=== PATIENT | male | born 1975 | race Caucasian/White ===

== ENCOUNTER 2016-10-19 13:44 | Emergency (ER) | payer OTHER ==
[2016-10-19] MEDS ORDERED: MORPHINE 4 MG/ML 1ML SYRINGE As Ordered ONE (14:37)
[2016-10-19] MEDS ORDERED: CEPHALEXIN 250 MG CAP As Ordered ONE (14:37)
[2016-10-19] MEDS ORDERED: ADACEL/BOOSTRIX VACCINE (DIPHTH/PERTUSS/ACELL/TETANUS)0.5ML SYR (90715) As Ordered ONE (14:38)
[2016-10-19] MEDS ORDERED: MORPHINE 15 MG SA TAB As Ordered ONE (14:48)
[2016-10-19] MEDS ORDERED: LIDOCAINE W/EPINEPHRINE 1% 20ML VIAL As Ordered ONE (16:11)
[2016-10-19] MEDS ORDERED: LIDOCAINE 2% W/EPIN INJ 20ML **PRES FREE As Ordered ONE (16:12)
--- NOTE | 2016-10-19 18:12 | EDDOCDS ---
Physician Documentation [facility] Name: Ming Adams Age: 41 yrs Sex: Male : 1975 Arrival Date: 10/19/2016 Time: 13:44 Bed 15 Private MD: NO PRIMARY PHYSICIAN, . Disposition: 10/19/16 16:58 Discharged to Home/Self Care. Impression: Laceration without foreign body, left lower leg. - Condition is Stable. - Discharge Instructions: Non-Sutured Laceration, Laceration Care, Adult, [facility]. - Prescriptions for Neosporin (dia- josephine-polym) 3.5mg-400 unit- 5,000 unit/gram Topical Ointment - apply to affected area 1 application by TOPICAL route 2 times per day; 15 gram. Keflex 500 mg Oral Capsule - take 1 capsule by ORAL route every 8 hours for 10 days; 30 capsule. Naprosyn 500 mg Oral Tablet - take 1 tablet by ORAL route 2 times per day take with food; 20 tablet. Percocet 5- 325 mg Oral Tablet - take 1 tablet by ORAL route every 6 hours As needed MDD: 4 tabs; 4 tablet. - Medication Reconciliation, Local Pharmacy Hours form. - Follow up: Luther Cota; When: Call to arrange an appointment. - Problem is new. - Symptoms have improved. - Notes: You were evaluated in the emergency department for a laceration to your left lower extremity secondary to a chainsaw accident. Pain medication was adminstered while in the ED. You were also given a one-time dose of antibiotic. An antibiotic, neosporin, and some pain medicationhas been prescribed at time of discharge. A small portion of your laceration was cleansed, anesthetized, and sutured using proper technique. A total of four sutures were placed and it appeared that the procedure was tolerated well. Please schedule an appointment with Dr. Cota at your soonest convenience. Historical: - Allergies: Bees; - Home Meds: 1. none - PMHx: none; - PSHx: Sinus Surgery; - Immunization history:: Last tetanus immunization: unknown. - Family history: Not pertinent. - Social history: Smoking status: Patient states was never smoker of tobacco. No barriers to communication noted, The patient speaks fluent Nepali, Speaks appropriately for age. - : The pt / caregiver states he / she is not on anticoagulants. Home medication list is obtained from the patient. - Exposure Risk Screening:: None identified. Vital Signs: 10/19 13:46 BP 148 / 80; Pulse 122; Resp 18 S; Temp 98.0; Pulse Ox 99% on R/A; Weight 74.84 kg / dd6 164.99 lbs (R); Height 6 ft. 0 in. (182.88 cm) (R); 17:59 BP 125 / 77 (auto/); hs1 18:00 Pulse 70 MON; Resp 18; Temp 97.4(TE); Pulse Ox 98% ; Pain 6/10; hs1 13:46 Body Mass Index 22.38 (74.84 kg, 182.88 cm) dd6 Procedures: 16:54 Laceration repair:. jo4 Laceration: 16:54 Wound Repair of 1.3cm ( 0.5in ) subcutaneous laceration to left leg. Distal jo4 neuro/vascular/tendon intact. Anesthesia: Local anesthetic administered with 4.2 mls of 2% lidocaine. Wound prep: Simple cleansing with hibiclenz by nurse, Wound irrigation with saline by nurse by provider. Skin closed with 4 x 4-0 Ethilon using Simple interrupted sutures. Dressed with Xeroform. Patient tolerated well. MDM: 14:25 morphine 4 mg IVP every 15 minutes; Document pain score/vitals after each dose (Hold if jo4 SBP < 90mmHg) x2 ordered. 14:34 Cephalexin 500 mg PO once ordered. jo4 14:34 Tetanus- Diptheria-Acellular Pertussis 0.5 ml IM once; Routine booster 10-64yrs, >64 jo4 with child contact [employer] ordered. 14:34 Wound Care ordered. jo4 14:46 morphine Extended Release Tablet 30 mg PO once ordered. jo4 14:52 [facility] Payment Agreement was scanned into [employer] and attached to record. jp5 14:52 Financial registration complete. jp5 15:34 ED course: 41 yo male s/p chainsaw to left leg avulsed skin medial aspect to subQ only sd1 no muscle/tendon involvement neurovasc intact no other injuries exam large area avulsed tissue to subq no exposed deeper tissue muscle etc distally intact unable to repair significant portion will have to heal by secondary intention d/w and patient risk of infection and scarring will have fu with wound clinic. 16:11 Lidocaine 20 mg/mL (2 %) 10 ml Infiltration once; to bedside ordered. jo4 Administered Medications: 14:40 Drug: Cephalexin 500 mg [cephalexin 250 mg capsule (2 caps)] Route: PO; ttb 14:42 Not Given (Duplicate Order): morphine 4 mg IVP every 15 minutes; Document pain jo4 score/vitals after each dose (Hold if SBP < 90mmHg) x2 14:45 Drug: Tetanus- Diptheria-Acellular Pertussis 0.5 ml [diphth,pertussis(acel),tetanus 2.5 ttb Lf unit-8 mcg-5 Lf/0.5mL IM syringe (0.5 mL)] {Fruit Ii Farmworker: [employer]. Exp: 11/16/2018. Lot #: [id number]. } Route: IM; Site: right deltoid; 14:51 Drug: morphine 30 mg [morphine ER 15 mg tablet,extended release (2 tabs)] Route: PO; ttb 17:08 Drug: Lidocaine 10 ml [lidocaine 20 mg/mL (2 %) injection solution (10 mL)] Route: hs1 Infiltration; Signatures: Rika Vinson MD MD sd1 Akua Hanna, Cost And Risk Analysis Manager Unit deg Ramakrishna Stratton, RN RN dy Venancio Crocker, KORY RN mlb1 Ivanna Shultz RN RN hs1 Mike Schneider jp5 Estefany Cabrales DO DO jo4 Berta Lewis RN ttb The chart was reviewed and I authenticate all verbal orders and agree with the evaluation and treatment provided.Attachments: 14:52 [facility] Payment Agreement jp5 MTDD
--- NOTE | 2016-10-19 18:12 | EDDOCDS ---
Nurse's Notes [facility] Name: Ming Adams Age: 41 yrs Sex: Male : 1975 Arrival Date: 10/19/2016 Time: 13:44 Bed 15 Private MD: NO PRIMARY PHYSICIAN, . Diagnosis: Laceration without foreign body, left lower leg Presentation: 10/19 13:51 Presenting complaint: Patient states: Laceration to left lower leg with a chain saw mlb1 bleeding controlled. Adult Sepsis Screening: The patient does not have new or worsening altered mentation. Patient's respiratory rate is less than 22. Systolic blood pressure is greater than 100. Patient has a qSOFA score of 0- Negative Sepsis Screen. Suicide/Homicide risk assessment- the patient denies having any suicidal and/or homicidal ideations and does not present with any other emotional, behavioral or mental health complaints. 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 Transition of care: patient was not received from another setting of care. 13:51 Acuity: STEW Level 3 mlb1 13:51 Method Of Arrival: Walkin/Carried/Asstd mlb1 Triage Assessment: 13:52 General: Appears uncomfortable, Behavior is appropriate for age, cooperative. Pain: mlb1 Location: medial aspect of left calf Pain currently is 10 out of 10 on a pain scale. Pt Declines HIV testing. 18:11 Injury Description: Laceration sustained to medial aspect of left calf. hs1 Historical: - Allergies: Bees; - Home Meds: 1. none - PMHx: none; - PSHx: Sinus Surgery; - Immunization history:: Last tetanus immunization: unknown. - Family history: Not pertinent. - Social history: Smoking status: Patient states was never smoker of tobacco. No barriers to communication noted, The patient speaks fluent German, Speaks appropriately for age. - : The pt / caregiver states he / she is not on anticoagulants. Home medication list is obtained from the patient. - Exposure Risk Screening:: None identified. Screenin:09 Screening information is obtained from the patient. Fall risk: No risks identified. hs1 Assistance ADL's: requires no assistance with activities of daily living. Abuse/DV Screen: The patient / caregiver reports he/she is: not in a situation that causes fear, pain or injury. Nutritional screening: No deficits noted. Advance Directives: There is no active DNR order. home support is adequate. Assessment: 14:09 General: Appears in no apparent distress, comfortable, Behavior is appropriate for age, pml cooperative. Pain: Location: medial aspect of left calf. Neurological: Level of Consciousness is awake, alert, Oriented to person, place, time. Cardiovascular: Capillary refill < 3 seconds. Respiratory: Airway is patent Respiratory effort is even, unlabored. GI: Abdomen is non- distended. Derm: Skin is pink, warm & dry. superficial abrasion to medial aspect of calf, edges poorly approximated, jagged, with flesh missing. bleeding controlled, adipose tissue visible in wound bed. 14:51 General: pt resting on stretcher. States pain to lacerated leg. Meds given per orders. ttb Family at bedside. NAD noted. Awaiting MD. Primary RN aware.. General: Appears in no apparent distress. Neurological: Level of Consciousness is awake, alert. Cardiovascular: Chest pain is denied. Respiratory: No deficits noted. Airway is patent Respiratory effort is even, unlabored. 15:36 General: patient complaining of pain 6/10 in leg stating he feels like its pulling and hs1 that it is tight "feels like its drying out". Patients leg irrigated with NS at this time to help keep wound bed moist. . Injury Description: Laceration is clean, jagged, 2.6 to 7.5 cm long, not bleeding. 16:40 General: Patient being sewn by Resident at this time. No needs known. Patient appears hs1 uncomfortable however states he is numb. . 17:25 General: Appears in no apparent distress, comfortable, Behavior is appropriate for age, hs1 cooperative, Wound has 4 stitches and is dressed at this time using Xeroform gauze. 4 x 4 s and ABD pad. Gauze and mamadou wrap used to protect dressing. . Cardiovascular: No deficits noted. Respiratory: No deficits noted. GI: No deficits noted. Denies nausea. Derm: Skin is pink, warm & dry. Vital Signs: 13:46 BP 148 / 80; Pulse 122; Resp 18 S; Temp 98.0; Pulse Ox 99% on R/A; Weight 74.84 kg (R); dd6 Height 6 ft. 0 in. (182.88 cm) (R); 17:59 BP 125 / 77 (auto/); hs1 18:00 Pulse 70 MON; Resp 18; Temp 97.4(TE); Pulse Ox 98% ; Pain 6/10; hs1 13:46 Body Mass Index 22.38 (74.84 kg, 182.88 cm) dd6 Vitals: 13:46 Log In Time: October 19, 2016 at 13:44. dd6 13:47 RN notified that patient meets Red Flag criteria. dd6 ED Course: 13:45 Patient visited by Kael Brice PCA. dd6 13:45 NO PRIMARY PHYSICIAN, . is Private Physician. dd6 13:45 Patient moved to Waiting dd6 13:49 Ivanna Shultz, KORY is Primary Nurse. dd6 13:49 Patient moved to 15 dd6 13:50 Patient visited by Venancio Crocker RN. mlb1 13:51 Triage Initiated mlb1 13:53 Patient visited by Venancio Crocker RN. mlb1 14:02 Estefany Cabrales DO is PHCP. jo4 14:02 Rika Vinson MD is Attending Physician. jo4 14:11 Patient visited by Kusum Mann,KORY. pml 14:43 Patient visited by Rika Vinson MD. sd1 14:52 Patient visited by Berta Lewis RN. ttb 14:52 [facility] Payment Agreement was scanned into [employer] and attached to record. jp5 15:33 Patient visited by Ivanna Shultz RN. hs1 16:14 Patient visited by Ivanna Shultz RN. hs1 16:42 Assist provider with laceration repair Laceration was 2.6 to 7.5 cm. with a simple hs1 repair. Performed by Estefany Cabrales DO Set up tray. Dressed with 4X4s, Xeroform, Patient tolerated well. 16:57 Luther Cota MD is Referral Physician. jo4 18:10 No IV's were initiated during this patient's visit. hs1 18:11 The patient / caregiver is instructed regarding the plan of care and ED course. hs1 Administered Medications: 14:40 Drug: Cephalexin 500 mg [cephalexin 250 mg capsule (2 caps)] Route: PO; ttb 14:42 Not Given (Duplicate Order): morphine 4 mg IVP every 15 minutes; Document pain jo4 score/vitals after each dose (Hold if SBP < 90mmHg) x2 14:45 Drug: Tetanus- Diptheria-Acellular Pertussis 0.5 ml [diphth,pertussis(acel),tetanus 2.5 ttb Lf unit-8 mcg-5 Lf/0.5mL IM syringe (0.5 mL)] {Devulcanizer Tender: [employer]. Exp: 11/16/2018. Lot #: [id number]. } Route: IM; Site: right deltoid; 14:51 Drug: morphine 30 mg [morphine ER 15 mg tablet,extended release (2 tabs)] Route: PO; ttb 17:08 Drug: Lidocaine 10 ml [lidocaine 20 mg/mL (2 %) injection solution (10 mL)] Route: hs1 Infiltration; Order Results: There are currently no results for this order. Outcome: 14:16 Property pants and long leija disposed as per pt. pml 16:58 Discharge ordered by Provider. jo4 18:09 Discharge Assessment: Patient awake, alert and oriented x 3. No cognitive and/or hs1 functional deficits noted. Patient verbalized understanding of disposition instructions. patient administered narcotics - yes. Pt provided with safe discharge. The following High Risk Discharge criteria are identified: None. Discharged to home ambulatory, with significant other. Condition: stable. Discharge instructions given to patient, significant other, Instructed on discharge instructions, follow up and referral plans. medication usage, wound care, Demonstrated understanding of instructions, medications, Pt was receptive of discharge instructions/ teaching. Prescriptions given X 4. No special radiology studies were completed. 18:11 Patient left the ED. hs1 Signatures: Rika Vinson MD MD sd1 Venancio Crocker RN RN mlb1 Kael Brice, AUTOMATIC CIGAR WRAPPER TENDER AUTOMATIC CIGAR WRAPPER TENDER dd6 Ivanna Shultz RN RN hs1 Kusum Mann RN RN pml Berta Lewis RN RN ttb Mike Schneider jp5 Estefany Cabrales DO DO jo4 MTDD
--- NOTE | 2016-10-19 18:28 | EDDOCDS ---
Nurse's Notes [facility] Name: Ming Adams Age: 41 yrs Sex: Male : 1975 Arrival Date: 10/19/2016 Time: 13:44 Bed 15 Private MD: NO PRIMARY PHYSICIAN, . Diagnosis: Laceration with foreign body, left lower leg Presentation: 10/19 13:51 Presenting complaint: Patient states: Laceration to left lower leg with a chain saw mlb1 bleeding controlled. Adult Sepsis Screening: The patient does not have new or worsening altered mentation. Patient's respiratory rate is less than 22. Systolic blood pressure is greater than 100. Patient has a qSOFA score of 0- Negative Sepsis Screen. Suicide/Homicide risk assessment- the patient denies having any suicidal and/or homicidal ideations and does not present with any other emotional, behavioral or mental health complaints. Status: Patient is not a director career services or dependent. Transition of care: patient was not received from another setting of care. 13:51 Acuity: STEW Level 3 mlb1 13:51 Method Of Arrival: Walkin/Carried/Asstd mlb1 Triage Assessment: 13:52 General: Appears uncomfortable, Behavior is appropriate for age, cooperative. Pain: mlb1 Location: medial aspect of left calf Pain currently is 10 out of 10 on a pain scale. Pt Declines HIV testing. 18:11 Injury Description: Laceration sustained to medial aspect of left calf. hs1 Historical: - Allergies: Bees; - Home Meds: 1. none - PMHx: none; - PSHx: Sinus Surgery; - Immunization history:: Last tetanus immunization: unknown. - Family history: Not pertinent. - Social history: Smoking status: Patient states was never smoker of tobacco. No barriers to communication noted, The patient speaks fluent Armenian, Speaks appropriately for age. - : The pt / caregiver states he / she is not on anticoagulants. Home medication list is obtained from the patient. - Exposure Risk Screening:: None identified. Screenin:09 Screening information is obtained from the patient. Fall risk: No risks identified. hs1 Assistance ADL's: requires no assistance with activities of daily living. Abuse/DV Screen: The patient / caregiver reports he/she is: not in a situation that causes fear, pain or injury. Nutritional screening: No deficits noted. Advance Directives: There is no active DNR order. home support is adequate. Assessment: 14:09 General: Appears in no apparent distress, comfortable, Behavior is appropriate for age, pml cooperative. Pain: Location: medial aspect of left calf. Neurological: Level of Consciousness is awake, alert, Oriented to person, place, time. Cardiovascular: Capillary refill < 3 seconds. Respiratory: Airway is patent Respiratory effort is even, unlabored. GI: Abdomen is non- distended. Derm: Skin is pink, warm & dry. superficial abrasion to medial aspect of calf, edges poorly approximated, jagged, with flesh missing. bleeding controlled, adipose tissue visible in wound bed. 14:51 General: pt resting on stretcher. States pain to lacerated leg. Meds given per orders. ttb Family at bedside. NAD noted. Awaiting MD. Primary RN aware.. General: Appears in no apparent distress. Neurological: Level of Consciousness is awake, alert. Cardiovascular: Chest pain is denied. Respiratory: No deficits noted. Airway is patent Respiratory effort is even, unlabored. 15:36 General: patient complaining of pain 6/10 in leg stating he feels like its pulling and hs1 that it is tight "feels like its drying out". Patients leg irrigated with NS at this time to help keep wound bed moist. . Injury Description: Laceration is clean, jagged, 2.6 to 7.5 cm long, not bleeding. 16:40 General: Patient being sewn by Resident at this time. No needs known. Patient appears hs1 uncomfortable however states he is numb. . 17:25 General: Appears in no apparent distress, comfortable, Behavior is appropriate for age, hs1 cooperative, Wound has 4 stitches and is dressed at this time using Xeroform gauze. 4 x 4 s and ABD pad. Gauze and mamadou wrap used to protect dressing. . Cardiovascular: No deficits noted. Respiratory: No deficits noted. GI: No deficits noted. Denies nausea. Derm: Skin is pink, warm & dry. Vital Signs: 13:46 BP 148 / 80; Pulse 122; Resp 18 S; Temp 98.0; Pulse Ox 99% on R/A; Weight 74.84 kg (R); dd6 Height 6 ft. 0 in. (182.88 cm) (R); 17:59 BP 125 / 77 (auto/); hs1 18:00 Pulse 70 MON; Resp 18; Temp 97.4(TE); Pulse Ox 98% ; Pain 6/10; hs1 13:46 Body Mass Index 22.38 (74.84 kg, 182.88 cm) dd6 Vitals: 13:46 Log In Time: October 19, 2016 at 13:44. dd6 13:47 RN notified that patient meets Red Flag criteria. dd6 ED Course: 13:45 Patient visited by Kael Brice PCA. dd6 13:45 NO PRIMARY PHYSICIAN, . is Private Physician. dd6 13:45 Patient moved to Waiting dd6 13:49 Ivanna Shultz, KORY is Primary Nurse. dd6 13:49 Patient moved to 15 dd6 13:50 Patient visited by Venancio Crocker, KORY. mlb1 13:51 Triage Initiated mlb1 13:53 Patient visited by Venancio Crocker RN. mlb1 14:02 Estefany Cabrales DO is PHCP. jo4 14:02 Rika Vinson MD is Attending Physician. jo4 14:11 Patient visited by Kusum Mann,KORY. pml 14:43 Patient visited by Rika Vinson MD. sd1 14:52 Patient visited by Berta Lewis RN. ttb 14:52 [facility] Payment Agreement was scanned into [employer] and attached to record. jp5 15:33 Patient visited by Ivanna Shultz RN. hs1 16:14 Patient visited by Ivanna Shultz RN. hs1 16:42 Assist provider with laceration repair Laceration was 2.6 to 7.5 cm. with a simple hs1 repair. Performed by Estefany Cabrales DO Set up tray. Dressed with 4X4s, Xeroform, Patient tolerated well. 16:57 Luther Cota MD is Referral Physician. jo4 18:10 No IV's were initiated during this patient's visit. hs1 18:11 The patient / caregiver is instructed regarding the plan of care and ED course. hs1 18:18 Luther Cota MD is Referral Physician. jo4 Administered Medications: 14:40 Drug: Cephalexin 500 mg [cephalexin 250 mg capsule (2 caps)] Route: PO; ttb 14:42 Not Given (Duplicate Order): morphine 4 mg IVP every 15 minutes; Document pain jo4 score/vitals after each dose (Hold if SBP < 90mmHg) x2 14:45 Drug: Tetanus- Diptheria-Acellular Pertussis 0.5 ml [diphth,pertussis(acel),tetanus 2.5 ttb Lf unit-8 mcg-5 Lf/0.5mL IM syringe (0.5 mL)] {Boot Trimmer: [employer]. Exp: 11/16/2018. Lot #: [id number]. } Route: IM; Site: right deltoid; 14:51 Drug: morphine 30 mg [morphine ER 15 mg tablet,extended release (2 tabs)] Route: PO; ttb 17:08 Drug: Lidocaine 10 ml [lidocaine 20 mg/mL (2 %) injection solution (10 mL)] Route: hs1 Infiltration; Order Results: There are currently no results for this order. Outcome: 14:16 Property pants and long leija disposed as per pt. pml 16:58 Discharge ordered by Provider. jo4 18:09 Discharge Assessment: Patient awake, alert and oriented x 3. No cognitive and/or hs1 functional deficits noted. Patient verbalized understanding of disposition instructions. patient administered narcotics - yes. Pt provided with safe discharge. The following High Risk Discharge criteria are identified: None. Discharged to home ambulatory, with significant other. Condition: stable. Discharge instructions given to patient, significant other, Instructed on discharge instructions, follow up and referral plans. medication usage, wound care, Demonstrated understanding of instructions, medications, Pt was receptive of discharge instructions/ teaching. Prescriptions given X 4. No special radiology studies were completed. 18:11 Patient left the ED. hs1 18:23 Discharge ordered by Provider. jo4 18:27 Patient left the ED. pml Signatures: Rika Vinson MD MD sd1 Venancio Crocker RN RN mlb1 Kael Brice, HEAD OF MARKETING ANALYTICS HEAD OF MARKETING ANALYTICS dd6 Ivanna Shultz RN RN hs1 Kusum Mann RN RN pml Berta Lewis RN RN ttb Mike Schneider jp5 Estefany Cabrales DO DO jo4 MTDD
--- NOTE | 2016-10-19 18:28 | EDDOCDS ---
Physician Documentation [facility] Name: Ming Adams Age: 41 yrs Sex: Male : 1975 Arrival Date: 10/19/2016 Time: 13:44 Bed 15 Private MD: NO PRIMARY PHYSICIAN, . Disposition: 10/19/16 18:23 Discharged to Home/Self Care. Impression: Laceration with foreign body, left lower leg. - Condition is Stable. - Prescriptions for Neosporin (dia- josephine-polym) 3.5mg-400 unit- 5,000 unit/gram Topical Ointment - apply to affected area 1 application by TOPICAL route 2 times per day; 15 gram. Keflex 500 mg Oral Capsule - take 1 capsule by ORAL route every 8 hours for 10 days; 30 capsule. Naprosyn 500 mg Oral Tablet - take 1 tablet by ORAL route 2 times per day take with food; 20 tablet. Percocet 5- 325 mg Oral Tablet - take 1 tablet by ORAL route every 6 hours As needed MDD: 4 tabs; 4 tablet. - Medication Reconciliation, Local Pharmacy Hours form. - Follow up: Luther Cota MD; When: Call to arrange an appointment; Reason: Wound/Symptom Recheck. - Problem is new. - Symptoms have improved. - Notes: You were evaluated in the emergency department for a laceration to your left lower extremity secondary to a chainsaw accident. Pain medication was adminstered while in the ED. You were also given a one-time dose of antibiotic. An antibiotic, neosporin, and some pain medicationhas been prescribed at time of discharge. A small portion of your laceration was cleansed, anesthetized, and sutured using proper technique. A total of four sutures were placed and it appeared that the procedure was tolerated well. Please schedule an appointment with Dr. Cota at your soonest convenience. Historical: - Allergies: Bees; - Home Meds: 1. none - PMHx: none; - PSHx: Sinus Surgery; - Immunization history:: Last tetanus immunization: unknown. - Family history: Not pertinent. - Social history: Smoking status: Patient states was never smoker of tobacco. No barriers to communication noted, The patient speaks fluent Chadian, Speaks appropriately for age. - : The pt / caregiver states he / she is not on anticoagulants. Home medication list is obtained from the patient. - Exposure Risk Screening:: None identified. Vital Signs: 10/19 13:46 BP 148 / 80; Pulse 122; Resp 18 S; Temp 98.0; Pulse Ox 99% on R/A; Weight 74.84 kg / dd6 164.99 lbs (R); Height 6 ft. 0 in. (182.88 cm) (R); 17:59 BP 125 / 77 (auto/); hs1 18:00 Pulse 70 MON; Resp 18; Temp 97.4(TE); Pulse Ox 98% ; Pain 6/10; hs1 13:46 Body Mass Index 22.38 (74.84 kg, 182.88 cm) dd6 Procedures: 16:54 Laceration repair:. jo4 Laceration: 16:54 Wound Repair of 1.3cm ( 0.5in ) subcutaneous laceration to left leg. Distal jo4 neuro/vascular/tendon intact. Anesthesia: Local anesthetic administered with 4.2 mls of 2% lidocaine. Wound prep: Simple cleansing with hibiclenz by nurse, Wound irrigation with saline by nurse by provider. Skin closed with 4 x 4-0 Ethilon using Simple interrupted sutures. Dressed with Xeroform. Patient tolerated well. MDM: 14:25 morphine 4 mg IVP every 15 minutes; Document pain score/vitals after each dose (Hold if jo4 SBP < 90mmHg) x2 ordered. 14:34 Cephalexin 500 mg PO once ordered. jo4 14:34 Tetanus- Diptheria-Acellular Pertussis 0.5 ml IM once; Routine booster 10-64yrs, >64 jo4 with child contact [place] [employer] ordered. 14:34 Wound Care ordered. jo4 14:46 morphine Extended Release Tablet 30 mg PO once ordered. jo4 14:52 [facility] Payment Agreement was scanned into [employer] and attached to record. jp5 14:52 Financial registration complete. jp5 15:34 ED course: 41 yo male s/p chainsaw to left leg avulsed skin medial aspect to subQ only sd1 no muscle/tendon involvement neurovasc intact no other injuries exam large area avulsed tissue to subq no exposed deeper tissue muscle etc distally intact unable to repair significant portion will have to heal by secondary intention d/w and patient risk of infection and scarring will have fu with wound clinic. 16:11 Lidocaine 20 mg/mL (2 %) 10 ml Infiltration once; to bedside ordered. jo4 Administered Medications: 14:40 Drug: Cephalexin 500 mg [cephalexin 250 mg capsule (2 caps)] Route: PO; ttb 14:42 Not Given (Duplicate Order): morphine 4 mg IVP every 15 minutes; Document pain jo4 score/vitals after each dose (Hold if SBP < 90mmHg) x2 14:45 Drug: Tetanus- Diptheria-Acellular Pertussis 0.5 ml [diphth,pertussis(acel),tetanus 2.5 ttb Lf unit-8 mcg-5 Lf/0.5mL IM syringe (0.5 mL)] {Argon Tester: [employer]. Exp: 11/16/2018. Lot #: [id number]. } Route: IM; Site: right deltoid; 14:51 Drug: morphine 30 mg [morphine ER 15 mg tablet,extended release (2 tabs)] Route: PO; ttb 17:08 Drug: Lidocaine 10 ml [lidocaine 20 mg/mL (2 %) injection solution (10 mL)] Route: hs1 Infiltration; Signatures: Rika Vinson MD MD sd1 Akua Hanna, Property Management Intern Unit deg Ramakrishna Stratton RN RN dy Venancio Crocker RN RN mlb1 Ivanna Shultz RN RN hs1 Kusum Mann,RN RN Mike Koenig jp5 Estefany Cabrales DO DO jo4 Berta Lewis RN ttb The chart was reviewed and I authenticate all verbal orders and agree with the evaluation and treatment provided.Attachments: 14:52 [facility] Payment Agreement jp5 MTDD
--- NOTE | 2016-10-21 19:28 | EDDOCDS ---
Physician Documentation [facility] Name: Ming Adams Age: 41 yrs Sex: Male : 1975 Arrival Date: 10/19/2016 Time: 13:44 Bed 15 Private MD: NO PRIMARY PHYSICIAN, . Disposition: 10/19/16 18:23 Discharged to Home/Self Care. Impression: Laceration with foreign body, left lower leg. - Condition is Stable. - Prescriptions for Neosporin (dia- josephine-polym) 3.5mg-400 unit- 5,000 unit/gram Topical Ointment - apply to affected area 1 application by TOPICAL route 2 times per day; 15 gram. Keflex 500 mg Oral Capsule - take 1 capsule by ORAL route every 8 hours for 10 days; 30 capsule. Naprosyn 500 mg Oral Tablet - take 1 tablet by ORAL route 2 times per day take with food; 20 tablet. Percocet 5- 325 mg Oral Tablet - take 1 tablet by ORAL route every 6 hours As needed MDD: 4 tabs; 4 tablet. - Medication Reconciliation, Local Pharmacy Hours form. - Follow up: Luther Cota MD; When: Call to arrange an appointment; Reason: Wound/Symptom Recheck. - Problem is new. - Symptoms have improved. - Notes: You were evaluated in the emergency department for a laceration to your left lower extremity secondary to a chainsaw accident. Pain medication was adminstered while in the ED. You were also given a one-time dose of antibiotic. An antibiotic, neosporin, and some pain medicationhas been prescribed at time of discharge. A small portion of your laceration was cleansed, anesthetized, and sutured using proper technique. A total of four sutures were placed and it appeared that the procedure was tolerated well. Please schedule an appointment with Dr. Cota at your soonest convenience. Historical: - Allergies: Bees; - Home Meds: 1. none - PMHx: none; - PSHx: Sinus Surgery; - Immunization history:: Last tetanus immunization: unknown. - Family history: Not pertinent. - Social history: Smoking status: Patient states was never smoker of tobacco. No barriers to communication noted, The patient speaks fluent [place], Speaks appropriately for age. - : The pt / caregiver states he / she is not on anticoagulants. Home medication list is obtained from the patient. - Exposure Risk Screening:: None identified. Vital Signs: 10/19 13:46 BP 148 / 80; Pulse 122; Resp 18 S; Temp 98.0; Pulse Ox 99% on R/A; Weight 74.84 kg / dd6 164.99 lbs (R); Height 6 ft. 0 in. (182.88 cm) (R); 17:59 BP 125 / 77 (auto/); hs1 18:00 Pulse 70 MON; Resp 18; Temp 97.4(TE); Pulse Ox 98% ; Pain 6/10; hs1 13:46 Body Mass Index 22.38 (74.84 kg, 182.88 cm) dd6 Procedures: 16:54 Laceration repair:. jo4 Laceration: 16:54 Wound Repair of 1.3cm ( 0.5in ) subcutaneous laceration to left leg. Distal jo4 neuro/vascular/tendon intact. Anesthesia: Local anesthetic administered with 4.2 mls of 2% lidocaine. Wound prep: Simple cleansing with hibiclenz by nurse, Wound irrigation with saline by nurse by provider. Skin closed with 4 x 4-0 Ethilon using Simple interrupted sutures. Dressed with Xeroform. Patient tolerated well. MDM: 14:25 morphine 4 mg IVP every 15 minutes; Document pain score/vitals after each dose (Hold if jo4 SBP < 90mmHg) x2 ordered. 14:34 Cephalexin 500 mg PO once ordered. jo4 14:34 Tetanus- Diptheria-Acellular Pertussis 0.5 ml IM once; Routine booster 10-64yrs, >64 jo4 with child contact [place] [employer] ordered. 14:34 Wound Care ordered. jo4 14:46 morphine Extended Release Tablet 30 mg PO once ordered. jo4 14:52 [facility] Payment Agreement was scanned into [employer] and attached to record. jp5 14:52 Financial registration complete. jp5 15:34 ED course: 41 yo male s/p chainsaw to left leg avulsed skin medial aspect to subQ only sd1 no muscle/tendon involvement neurovasc intact no other injuries exam large area avulsed tissue to subq no exposed deeper tissue muscle etc distally intact unable to repair significant portion will have to heal by secondary intention d/w and patient risk of infection and scarring will have fu with wound clinic. 16:11 Lidocaine 20 mg/mL (2 %) 10 ml Infiltration once; to bedside ordered. jo4 21:18 T-Sheet-- Draft Copy was scanned into [employer] and attached to record. klr Administered Medications: 14:40 Drug: Cephalexin 500 mg [cephalexin 250 mg capsule (2 caps)] Route: PO; ttb 14:42 Not Given (Duplicate Order): morphine 4 mg IVP every 15 minutes; Document pain jo4 score/vitals after each dose (Hold if SBP < 90mmHg) x2 14:45 Drug: Tetanus- Diptheria-Acellular Pertussis 0.5 ml [diphth,pertussis(acel),tetanus 2.5 ttb Lf unit-8 mcg-5 Lf/0.5mL IM syringe (0.5 mL)] {Clinical Services Director: [employer]. Exp: 11/16/2018. Lot #: [id number]. } Route: IM; Site: right deltoid; 14:51 Drug: morphine 30 mg [morphine ER 15 mg tablet,extended release (2 tabs)] Route: PO; ttb 17:08 Drug: Lidocaine 10 ml [lidocaine 20 mg/mL (2 %) injection solution (10 mL)] Route: hs1 Infiltration; Signatures: Rika Vinson MD MD sd1 Akua Hanna, Baby Formula Worker Unit deg Ramakrishna Stratton, RN RN dy Venancio Crocker RN RN mlb1 Ivanna Shultz RN RN hs1 Kusum MannRN Mike Crowder jp5 Estefany Cabrales DO DO jo4 Angi Griffiths Teresa RN ttb The chart was reviewed and I authenticate all verbal orders and agree with the evaluation and treatment provided.Attachments: 14:52 [facility] Payment Agreement jp5 21:18 T-Sheet-- Draft Copy klr Chart Complete MTDD
--- NOTE | 2016-10-21 19:28 | EDDOCDS ---
Physician Documentation [facility] Name: Ming Adams Age: 41 yrs Sex: Male : 1975 Arrival Date: 10/19/2016 Time: 13:44 Bed 15 Private MD: NO PRIMARY PHYSICIAN, . Disposition: 10/19/16 18:23 Discharged to Home/Self Care. Impression: Laceration with foreign body, left lower leg. - Condition is Stable. - Prescriptions for Neosporin (dia- josephine-polym) 3.5mg-400 unit- 5,000 unit/gram Topical Ointment - apply to affected area 1 application by TOPICAL route 2 times per day; 15 gram. Keflex 500 mg Oral Capsule - take 1 capsule by ORAL route every 8 hours for 10 days; 30 capsule. Naprosyn 500 mg Oral Tablet - take 1 tablet by ORAL route 2 times per day take with food; 20 tablet. Percocet 5- 325 mg Oral Tablet - take 1 tablet by ORAL route every 6 hours As needed MDD: 4 tabs; 4 tablet. - Medication Reconciliation, Local Pharmacy Hours form. - Follow up: Luther Cota MD; When: Call to arrange an appointment; Reason: Wound/Symptom Recheck. - Problem is new. - Symptoms have improved. - Notes: You were evaluated in the emergency department for a laceration to your left lower extremity secondary to a chainsaw accident. Pain medication was adminstered while in the ED. You were also given a one-time dose of antibiotic. An antibiotic, neosporin, and some pain medicationhas been prescribed at time of discharge. A small portion of your laceration was cleansed, anesthetized, and sutured using proper technique. A total of four sutures were placed and it appeared that the procedure was tolerated well. Please schedule an appointment with Dr. Cota at your soonest convenience. Historical: - Allergies: Bees; - Home Meds: 1. none - PMHx: none; - PSHx: Sinus Surgery; - Immunization history:: Last tetanus immunization: unknown. - Family history: Not pertinent. - Social history: Smoking status: Patient states was never smoker of tobacco. No barriers to communication noted, The patient speaks fluent Lao, Speaks appropriately for age. - : The pt / caregiver states he / she is not on anticoagulants. Home medication list is obtained from the patient. - Exposure Risk Screening:: None identified. Vital Signs: 10/19 13:46 BP 148 / 80; Pulse 122; Resp 18 S; Temp 98.0; Pulse Ox 99% on R/A; Weight 74.84 kg / dd6 164.99 lbs (R); Height 6 ft. 0 in. (182.88 cm) (R); 17:59 BP 125 / 77 (auto/); hs1 18:00 Pulse 70 MON; Resp 18; Temp 97.4(TE); Pulse Ox 98% ; Pain 6/10; hs1 13:46 Body Mass Index 22.38 (74.84 kg, 182.88 cm) dd6 Procedures: 16:54 Laceration repair:. jo4 Laceration: 16:54 Wound Repair of 1.3cm ( 0.5in ) subcutaneous laceration to left leg. Distal jo4 neuro/vascular/tendon intact. Anesthesia: Local anesthetic administered with 4.2 mls of 2% lidocaine. Wound prep: Simple cleansing with hibiclenz by nurse, Wound irrigation with saline by nurse by provider. Skin closed with 4 x 4-0 Ethilon using Simple interrupted sutures. Dressed with Xeroform. Patient tolerated well. MDM: 14:25 morphine 4 mg IVP every 15 minutes; Document pain score/vitals after each dose (Hold if jo4 SBP < 90mmHg) x2 ordered. 14:34 Cephalexin 500 mg PO once ordered. jo4 14:34 Tetanus- Diptheria-Acellular Pertussis 0.5 ml IM once; Routine booster 10-64yrs, >64 jo4 with child contact [place] [employer] ordered. 14:34 Wound Care ordered. jo4 14:46 morphine Extended Release Tablet 30 mg PO once ordered. jo4 14:52 [facility] Payment Agreement was scanned into [employer] and attached to record. jp5 14:52 Financial registration complete. jp5 15:34 ED course: 41 yo male s/p chainsaw to left leg avulsed skin medial aspect to subQ only sd1 no muscle/tendon involvement neurovasc intact no other injuries exam large area avulsed tissue to subq no exposed deeper tissue muscle etc distally intact unable to repair significant portion will have to heal by secondary intention d/w and patient risk of infection and scarring will have fu with wound clinic. 16:11 Lidocaine 20 mg/mL (2 %) 10 ml Infiltration once; to bedside ordered. jo4 21:18 T-Sheet-- Draft Copy was scanned into [employer] and attached to record. klr Administered Medications: 14:40 Drug: Cephalexin 500 mg [cephalexin 250 mg capsule (2 caps)] Route: PO; ttb 14:42 Not Given (Duplicate Order): morphine 4 mg IVP every 15 minutes; Document pain jo4 score/vitals after each dose (Hold if SBP < 90mmHg) x2 14:45 Drug: Tetanus- Diptheria-Acellular Pertussis 0.5 ml [diphth,pertussis(acel),tetanus 2.5 ttb Lf unit-8 mcg-5 Lf/0.5mL IM syringe (0.5 mL)] {Continuous Improvement Engineer: [employer] Exp: 11/16/2018. Lot #: [id number]. } Route: IM; Site: right deltoid; 14:51 Drug: morphine 30 mg [morphine ER 15 mg tablet,extended release (2 tabs)] Route: PO; ttb 17:08 Drug: Lidocaine 10 ml [lidocaine 20 mg/mL (2 %) injection solution (10 mL)] Route: hs1 Infiltration; Signatures: Rika Vinson MD MD sd1 Akua Hanna, Boxing Promoter Unit deg Ramakrishna Stratton, RN RN dy Venancio Crocker RN RN mlb1 Ivanna Shultz RN RN hs1 Kusum MannRN Mike Crowder jp5 Estefany Cabrales DO DO jo4 Angi Griffiths Teresa RN ttb The chart was reviewed and I authenticate all verbal orders and agree with the evaluation and treatment provided.Attachments: 14:52 [facility] Payment Agreement jp5 21:18 T-Sheet-- Draft Copy klr Chart Complete MTDD
--- NOTE | 2016-10-21 19:28 | EDDOCDS ---
Nurse's Notes [facility] Name: Ming Adams Age: 41 yrs Sex: Male : 1975 Arrival Date: 10/19/2016 Time: 13:44 Bed 15 Private MD: NO PRIMARY PHYSICIAN, . Diagnosis: Laceration with foreign body, left lower leg Presentation: 10/19 13:51 Presenting complaint: Patient states: Laceration to left lower leg with a chain saw mlb1 bleeding controlled. Adult Sepsis Screening: The patient does not have new or worsening altered mentation. Patient's respiratory rate is less than 22. Systolic blood pressure is greater than 100. Patient has a qSOFA score of 0- Negative Sepsis Screen. Suicide/Homicide risk assessment- the patient denies having any suicidal and/or homicidal ideations and does not present with any other emotional, behavioral or mental health complaints. Status: Patient is not a mobile home servicer or dependent. Transition of care: patient was not received from another setting of care. 13:51 Acuity: STEW Level 3 mlb1 13:51 Method Of Arrival: Walkin/Carried/Asstd mlb1 Triage Assessment: 13:52 General: Appears uncomfortable, Behavior is appropriate for age, cooperative. Pain: mlb1 Location: medial aspect of left calf Pain currently is 10 out of 10 on a pain scale. Pt Declines HIV testing. 18:11 Injury Description: Laceration sustained to medial aspect of left calf. hs1 Historical: - Allergies: Bees; - Home Meds: 1. none - PMHx: none; - PSHx: Sinus Surgery; - Immunization history:: Last tetanus immunization: unknown. - Family history: Not pertinent. - Social history: Smoking status: Patient states was never smoker of tobacco. No barriers to communication noted, The patient speaks fluent Spanish, Speaks appropriately for age. - : The pt / caregiver states he / she is not on anticoagulants. Home medication list is obtained from the patient. - Exposure Risk Screening:: None identified. Screenin:09 Screening information is obtained from the patient. Fall risk: No risks identified. hs1 Assistance ADL's: requires no assistance with activities of daily living. Abuse/DV Screen: The patient / caregiver reports he/she is: not in a situation that causes fear, pain or injury. Nutritional screening: No deficits noted. Advance Directives: There is no active DNR order. home support is adequate. Assessment: 14:09 General: Appears in no apparent distress, comfortable, Behavior is appropriate for age, pml cooperative. Pain: Location: medial aspect of left calf. Neurological: Level of Consciousness is awake, alert, Oriented to person, place, time. Cardiovascular: Capillary refill < 3 seconds. Respiratory: Airway is patent Respiratory effort is even, unlabored. GI: Abdomen is non- distended. Derm: Skin is pink, warm & dry. superficial abrasion to medial aspect of calf, edges poorly approximated, jagged, with flesh missing. bleeding controlled, adipose tissue visible in wound bed. 14:51 General: pt resting on stretcher. States pain to lacerated leg. Meds given per orders. ttb Family at bedside. NAD noted. Awaiting MD. Primary RN aware.. General: Appears in no apparent distress. Neurological: Level of Consciousness is awake, alert. Cardiovascular: Chest pain is denied. Respiratory: No deficits noted. Airway is patent Respiratory effort is even, unlabored. 15:36 General: patient complaining of pain 6/10 in leg stating he feels like its pulling and hs1 that it is tight "feels like its drying out". Patients leg irrigated with NS at this time to help keep wound bed moist. . Injury Description: Laceration is clean, jagged, 2.6 to 7.5 cm long, not bleeding. 16:40 General: Patient being sewn by Resident at this time. No needs known. Patient appears hs1 uncomfortable however states he is numb. . 17:25 General: Appears in no apparent distress, comfortable, Behavior is appropriate for age, hs1 cooperative, Wound has 4 stitches and is dressed at this time using Xeroform gauze. 4 x 4 s and ABD pad. Gauze and mamadou wrap used to protect dressing. . Cardiovascular: No deficits noted. Respiratory: No deficits noted. GI: No deficits noted. Denies nausea. Derm: Skin is pink, warm & dry. Vital Signs: 13:46 BP 148 / 80; Pulse 122; Resp 18 S; Temp 98.0; Pulse Ox 99% on R/A; Weight 74.84 kg (R); dd6 Height 6 ft. 0 in. (182.88 cm) (R); 17:59 BP 125 / 77 (auto/); hs1 18:00 Pulse 70 MON; Resp 18; Temp 97.4(TE); Pulse Ox 98% ; Pain 6/10; hs1 13:46 Body Mass Index 22.38 (74.84 kg, 182.88 cm) dd6 Vitals: 13:46 Log In Time: October 19, 2016 at 13:44. dd6 13:47 RN notified that patient meets Red Flag criteria. dd6 ED Course: 13:45 Patient visited by Kael Brice PCA. dd6 13:45 NO PRIMARY PHYSICIAN, . is Private Physician. dd6 13:45 Patient moved to Waiting dd6 13:49 Ivanna Shultz, KORY is Primary Nurse. dd6 13:49 Patient moved to 15 dd6 13:50 Patient visited by Venancio Crocker, KORY. mlb1 13:51 Triage Initiated mlb1 13:53 Patient visited by Venancio Crocker, KORY. mlb1 14:02 [facility] jo4 14:02 Rika Vinson MD is Attending Physician. jo4 14:11 Patient visited by Kusum Mann,KORY. pml 14:43 Patient visited by Rika Vinson MD. sd1 14:52 Patient visited by Berta Lewis RN. ttb 14:52 [facility] Payment Agreement was scanned into [employer] and attached to record. jp5 15:33 Patient visited by Ivanna Shultz RN. hs1 16:14 Patient visited by Ivanna Shultz RN. hs1 16:42 Assist provider with laceration repair Laceration was 2.6 to 7.5 cm. with a simple hs1 repair. Performed by Estefany Cabrales DO Set up tray. Dressed with 4X4s, Xeroform, Patient tolerated well. 16:57 Luther Cota MD is Referral Physician. jo4 18:10 No IV's were initiated during this patient's visit. hs1 18:11 The patient / caregiver is instructed regarding the plan of care and ED course. hs1 18:18 Luther Cota MD is Referral Physician. jo4 21:18 T-Sheet-- Draft Copy was scanned into [employer] and attached to record. klr Administered Medications: 14:40 Drug: Cephalexin 500 mg [cephalexin 250 mg capsule (2 caps)] Route: PO; ttb 14:42 Not Given (Duplicate Order): morphine 4 mg IVP every 15 minutes; Document pain jo4 score/vitals after each dose (Hold if SBP < 90mmHg) x2 14:45 Drug: Tetanus- Diptheria-Acellular Pertussis 0.5 ml [diphth,pertussis(acel),tetanus 2.5 ttb Lf unit-8 mcg-5 Lf/0.5mL IM syringe (0.5 mL)] {Nursing Attendant: [email or web address]. Exp: 11/16/2018. Lot #: [id number]. } Route: IM; Site: right deltoid; 14:51 Drug: morphine 30 mg [morphine ER 15 mg tablet,extended release (2 tabs)] Route: PO; ttb 17:08 Drug: Lidocaine 10 ml [lidocaine 20 mg/mL (2 %) injection solution (10 mL)] Route: hs1 Infiltration; Order Results: There are currently no results for this order. Outcome: 14:16 Property pants and long leija disposed as per pt. pml 16:58 Discharge ordered by Provider. jo4 18:09 Discharge Assessment: Patient awake, alert and oriented x 3. No cognitive and/or hs1 functional deficits noted. Patient verbalized understanding of disposition instructions. patient administered narcotics - yes. Pt provided with safe discharge. The following High Risk Discharge criteria are identified: None. Discharged to home ambulatory, with significant other. Condition: stable. Discharge instructions given to patient, significant other, Instructed on discharge instructions, follow up and referral plans. medication usage, wound care, Demonstrated understanding of instructions, medications, Pt was receptive of discharge instructions/ teaching. Prescriptions given X 4. No special radiology studies were completed. 18:11 Patient left the ED. hs1 18:23 Discharge ordered by Provider. jo4 18:27 Patient left the ED. pml Signatures: Rika Vinson MD MD sd1 Venancio Crocker RN RN mlb1 Kael Brice, AGENCY TRAINER AGENCY TRAINER dd6 Ivanna Shultz RN RN hs1 Kusum MannRN RN pml Berta Lewis RN RN ttb Mike Schneider jp5 Estefany Cabrales DO DO jo4 Angi Griffiths Chart Complete MTDD
== END 2016-10-19 18:27 | disposition home or self-care (01) ==
LOC: M ED 13:44
DX: S81.812A Laceration without foreign body, left lower leg, initial encounter (principal); W29.3XXA Contact with powered garden and outdoor hand tools and machinery, initial encounter; Y92.019 Unspecified place in single-family (private) house as the place of occurrence of the external cause; Y93.89 Activity, other specified; Y99.8 Other external cause status; Z91.030 Bee allergy status

== ENCOUNTER → 2017-10-19 | Outpatient (REF) | payer OTHER | LOC: M LAB REF 19:44 | DX: J02.9 Acute pharyngitis, unspecified (principal) ==

== ENCOUNTER → 2018-07-27 | Outpatient (CLI) | payer OTHER | LOC: M ADAMS 08:46 | DX: R93.7 Abnormal findings on diagnostic imaging of other parts of musculoskeletal system (principal) | CPT/HCPCS: 73130 ==

== ENCOUNTER → 2019-03-22 | Outpatient (CLI) | payer OTHER ==
--- NOTE | 2019-03-22 10:42 | REP ---
Left fifth toe series: Four views. History: Pain. Findings: Four views of the left fifth toe demonstrate an obliquely oriented nondisplaced fracture through the proximal phalanx with associated soft-tissue swelling. Impression: Nondisplaced fracture fifth proximal phalanx. Electronically Signed by Home Amaro MD 03/22/2019 10:33 A
== END ==
LOC: M ADAMS 10:11
PROVIDERS: ATTEND Physician Assistant
DX: S92.515A Nondisplaced fracture of proximal phalanx of left lesser toe(s), initial encounter for closed fracture (principal); X58.XXXA Exposure to other specified factors, initial encounter; Y92.89 Other specified places as the place of occurrence of the external cause